=== PATIENT | female | born 1960 | race Caucasian/White ===

== ENCOUNTER 2016-08-24 12:52 | Day surgery (SDC) | payer OTHER ==
[~2016-08-24] VITALS: Ht 149.9 cm; Wt 84.6 kg
[2016-08-24 13:36] VITALS: Ht 149.9 cm; Wt 84.6 kg
[2016-08-24] MEDS ORDERED: ZOC10 PO (13:43)
[2016-08-24] MEDS ORDERED: MONT10TA21 PO (13:43)
[2016-08-24] MEDS ORDERED: METF500T4 PO (13:43)
[2016-08-24] MEDS ORDERED: LIDOCAINE 2% (SDV) 5 ML INJ ONE (14:21)
[2016-08-24] MEDS ORDERED: PROPOFOL 20 ML ONE (14:21)
[2016-08-24] MEDS ORDERED: FENTAnyl 50 MCG/ML VIAL ONE (14:32)
[2016-08-24 14:38] VITALS: BP 135/79; PULSE 80; RESP 18
[2016-08-24 15:28] VITALS: BP 110/59; PULSE 63; RESP 16
--- NOTE | 2016-08-24 15:50 | GILP ---
DATE OF PROCEDURE: NAME OF PROCEDURE: Colonoscopy and biopsy. SURGEON: Malika Lane MD PREOPERATIVE DIAGNOSIS: Positive occult blood in the stool. POSTOPERATIVE DIAGNOSES: 1. Colonoscopy all the way to the cecum. 2. Diverticulosis of the colon. 3. Multiple small rectal polyps, and biopsies were taken for histopathology. 4. Internal hemorrhoids. INDICATION FOR THE PROCEDURE: Ms. Marnie Sandoval is a 55-year-old female patient who was noted to have positive occult blood in the stool. The patient was scheduled for colonoscopy for further evaluatio n. The procedure and possible complications were well explained to the patient. The patient understood and consented to the procedure. DESCRIPTION OF PROCEDURE: Under the influence of anesthesia the colonoscope was carefully introduce d in the rectum and under direct vision it was advanced all the way to the cecum. FINDINGS: The patient had multiple small rectal polyps and biopsies were taken for histopathology. The patient was noted to have internal hemorrhoids. She also had diverticulosis of the colon. She tolerated the procedure very well and there was no complication from the procedure. At the end of the procedure she was awake with stable vital signs and she was discharged home to the care of he r family. IMPRESSION: 1. Colonoscopy all the way to the cecum. 2. Diverticulosis of the colon. 3. Multiple small rectal polyps, and biopsies were taken for histopathology. 4. Internal hemorrhoids. PLAN: 1. Await histopathology report. 2. Next screening colonoscopy in 3 years. Dictated By: MALIKA JORDAN/LEIGH ANN Conf#: [id number] DID#: [id number]
== END 2016-08-24 15:40 | disposition home or self-care (01) ==
LOC: GIL 12:52
PROVIDERS: ATTEND Internal Medicine Gastroenterology
DX: K62.1 Rectal polyp (principal); K57.90 Diverticulosis of intestine, part unspecified, without perforation or abscess without bleeding; K64.8 Other hemorrhoids; E78.5 Hyperlipidemia, unspecified; E11.9 Type 2 diabetes mellitus without complications; E66.9 Obesity, unspecified; Z68.37 Body mass index [BMI] 37.0-37.9, adult
CPT/HCPCS: 45380; 82962; 88305; J3010; Z7610